=== PATIENT | male | born 1980 | race Caucasian/White ===

== ENCOUNTER 2019-05-30 10:39 | Emergency (ER) | payer OTHER ==
[2019-05-30 10:53] VITALS: BP 135/77; PULSE 93; TEMP 97.9; BMI 40.3
--- NOTE | 2019-05-30 11:12 | PDOC ---
History of Present Illness - General Chief Complaint: Rash Stated Complaint: RT. LEG PAIN Time Seen by Provider: 05/30/19 11:12 - History of Present Illness Initial Comments: 05/30/19 13:11 Chief complaint: Leg swelling and itchy rash Patient is a 38-year-old male without any significant problems who states just over a week ago, he had a chemical exposure to his leg which seemed to get worse and he went to an urgent care and they started him on clindamycin. Patient has since followed up at wound care 2, taking the clindamycin, wound care told him they did not think this was a cellulitis. Patient states they also tested his circulation, but has not had an ultrasound. Patient has no fever but came to the ER today because he broke out in an itchy rash that started on his hands and has spread to his legs. Patient has no shortness of breath but is also complaining of pain to the leg. GENERAL/CONSTITUTIONAL: No fever, weakness. dizziness HEAD, EYES, EARS, NOSE AND THROAT: No change in vision. No ear pain or discharge. No sore throat. CARDIOVASCULAR: No chest pain RESPIRATORY: No shortness of breath or cough GASTROINTESTINAL: No pain, nausea, vomiting, diarrhea or constipation GENITOURINARY: No dysuria MUSCULOSKELETAL: No neck or back pain SKIN: +rash, + erythema NEUROLOGIC: No headache, vertigo, loss of consciousness, or loss of sensation. GENERAL: The patient is awake, alert, and fully oriented, in no acute distress. HEAD: Normal with no signs of trauma. EYES: Pupils equal, round and reactive to light, sclera anicteric, conjunctiva clear. ENT: pharynx: no erythema, no exudate, uvula midline NECK: supple CHEST: clear, nontender, rr ABD: soft, nontender BACK: no tenderness or signs of injury EXTREMITIES: Right lower extremity wrapped from wound care, with exposed area medially with pruritic, erythematous rash, after wrap was removed from leg, the middle lower leg was swollen, erythematous, blanchable with minimal skin openings. Foot had mild swelling, neurovascular intact, no erythema. Patient had relief of pain when wrap was removed. Rest of extremities had scattered pruritic urticarial appearing rash with no signs of cellulitis, normal range of motion, no edema. NEUROLOGICAL: Normal speech, normal gait. SKIN: Warm, Dry Past History - Past Medical History Allergies/Adverse Reactions: Allergies Allergy/AdvReac Type Severity Reaction Status Date / Time No Known Allergies Allergy Verified 05/30/19 10:53 Home Medications: Ambulatory Orders Cephalexin Monohydrate [Keflex -] 500 mg PO Q6H #28 capsule 05/30/19 Sulfamethoxazole/Trimethoprim [Bactrim Ds Tablet] 1 each PO BID #14 tablet 05/30 Anemia: No Asthma: No Cancer: No Cardiac Disorders: No CVA: No COPD: No CHF: No Dementia: No Diabetes: No GI Disorders: No Disorders: No HTN: No Hypercholesterolemia: No Kidney Stones: No Liver Disease: No Seizures: No Thyroid Disease: No - Surgical History Abdominal Surgery: No Appendectomy: No Cardiac Surgery: No Cholecystectomy: No Lung Surgery: No Neurologic Surgery: No Orthopedic Surgery: No - Reproductive History Testicular Surgery: No - Suicide/Smoking/Psychosocial Hx Smoking History: Current every day smoker Have you smoked in the past 12 months: Yes Number of Cigarettes Smoked Daily: 20 Information on smoking cessation initiated: No 'Breaking Loose' booklet given: 05/17/13 Hx Alcohol Use: No Drug/Substance Use Hx: No Substance Use Type: Heroin Hx Substance Use Treatment: No *Physical Exam - Vital Signs Last Vital Signs Temp Pulse Resp BP Pulse Ox 97.9 F 93 H 16 135/77 95 05/30/19 10:48 05/30/19 10:48 05/30/19 10:48 05/30/19 10:48 05/30/19 10:48 Medical Decision Making - Medical Decision Making 05/30/19 13:18 38-year-old male with no significant medical history with history of chemical exposure to right lower leg over a week ago, has been treated with clindamycin, wound care, compression wrap. Now with pruritic rash to the extremities, no fever, leg is not getting better. Discussed with patient how this can BE ALLERGIC reaction, it may be to the antibiotic, it is not clear. Discussed how he is failing outpatient treatment, should get an ultrasound of the leg, admission. Patient states that he is taking care of his niece, that there parents are away and he would have to arrange care. Patient tried to arrange care, states he cannot stay. He will sign out AGAINST MEDICAL ADVICE. He understands that this can result in disability, worsening, infection sepsis and . We'll give him injection of Decadron for the pruritic rash, will not send him home on prednisone given the cellulitis. But we'll send patient home on Keflex and Bactrim, give infection disease follow-up and encouraged patient to return for admission. Patient also take Benadryl for symptomatic relief of the itching and will stop the clindamycin. AMA was discussed with Dr. Gómez, who agreed with outpatient plan although patient is signing out AGAINST MEDICAL ADVICE. AMA form was printed and witnessed. Discussed issues, findings, results, applicable medications and treatments and follow-up. All these were understood and all questions were answered 05/30/19 13:22 *DC/Admit/Observation/Transfer Diagnosis at time of Disposition: Pruritic rash Cellulitis Qualifiers: Site of cellulitis: extremity Site of cellulitis of extremity: lower extremity Laterality: right Qualified Code(s): L03.115 - Cellulitis of right lower limb - Discharge Dispostion Disposition: HOME Condition at time of disposition: Stable - Prescriptions Prescriptions: Cephalexin Monohydrate [Keflex -] 500 mg PO Q6H #28 capsule Sulfamethoxazole/Trimethoprim [Bactrim Ds Tablet] 1 each PO BID #14 tablet - Referrals Referrals: Modesta Thorne MD [Staff Physician] - - Patient Instructions Additional Instructions: You are signing out AGAINST MEDICAL ADVICE, your condition is getting worse, requiring admission for proper care. Skin result in worsening infection, sepsis, Return if you change your mind. Take the Keflex 500 mg 4 times a day, Bactrim 1 tablet every 12 hours, both for 7 days. Given you the name of infectious disease doctor to follow-up with but if this has not gotten better and you can come back to the hospital that would be the best option You can take Benadryl 25 mg every 4-6 hours for the itching - Post Discharge Activity
[2019-05-30] MEDS ORDERED: DEXAMETHASONE SOD PHOSPHATE 4 MG/1 ML VIAL IM ONE (11:45)
[2019-05-30] MEDS ORDERED: DEXAMETHASONE SOD PHOSPHATE 10 MG/1 ML VIAL ONE (11:53)
[2019-05-30] MEDS ORDERED: DEXAMETHASONE SOD PHOSPHATE 10 MG/1 ML VIAL IM ONE (11:53)
== END 2019-05-30 12:06 | disposition left against medical advice (07) ==
LOC: JERFT 10:39
DX: R21 Rash and other nonspecific skin eruption (principal); F17.210 Nicotine dependence, cigarettes, uncomplicated
CPT/HCPCS: 99281-25; J1100